=== PATIENT | male | born 1955 | race Caucasian/White ===

== ENCOUNTER 2016-10-13 12:22 | Inpatient (IN) | payer OTHER ==
[~2016-10-13] VITALS: Ht 182.9 cm; Wt 132.7 kg
[~2016-10-13 12:22] MED LIST: CORDARONE 200M200 MG PO; LANOXIN TAB0.125 MG PO; RANEXA1000 MG PO; TOPROL XL25 MG PO; ZANTAC150 MG PO
[2016-10-13 15:13] LABS: HEMOGLOBIN 12.9 gm/dl (14.0-17.5); RED BLOOD COUNT 4.39 M/UL (4.20-5.50); WHITE BLOOD COUNT 10.5 K/UL (4.5-11.0)
[2016-10-13 15:53] LABS: BUN/CREATININE RATIO 12 (0-10)
[2016-10-14] MEDS ORDERED: ASPIRIN81 MG PO (01:44)
[2016-10-14] MEDS ORDERED: XANAX0.25 MG PO (01:44)
[2016-10-14] MEDS ORDERED: CORDARONE 200M200 MG PO (01:44)
[2016-10-14] MEDS ORDERED: LIPITOR TAB 2020 MG PO (01:45)
[2016-10-14] MEDS ORDERED: COREG 3.125M3.125 MG PO (01:45)
[2016-10-14] MEDS ORDERED: CELEXA40 MG PO ×2 (01:45→01:46)
[2016-10-14] MEDS ORDERED: NEURONTIN 400400 MG PO (01:46)
[2016-10-14] MEDS ORDERED: IMDUR ER TAB 3030 MG PO (01:46)
[2016-10-14] MEDS ORDERED: PLAVIX 75 MG TA75 MG PO (01:46)
[2016-10-14] MEDS ORDERED: ROXICODONE30 MG PO (01:47)
[2016-10-14] MEDS ORDERED: ALDACTONE25 MG PO (01:48)
[2016-10-14] MEDS ORDERED: ZANTAC150 MG PO (01:48)
[2016-10-14] MEDS ORDERED: RANEXA1000 MG PO (01:48)
[2016-10-14 05:37] LABS: HEMOGLOBIN 13.5 gm/dl (14.0-17.5); RED BLOOD COUNT 4.58 M/UL (4.20-5.50); WHITE BLOOD COUNT 8.7 K/UL (4.5-11.0)
--- NOTE | 2016-10-15 03:42 | NUR ---
10/15/16 033 I CONTACTED SHIELA, [facility] PHARMAC[facility], REGARDING PT'S IV ANTIBIOTICS. UNFORTUNATELY, THE PATIENTS IV BEGAN LEAKING RETIREMENT THROUGH HIS [facility] VANCOMYOCIN DOSE. IV ACCESS WAS ATTEMPTED SEVERAL TIMES AND WAS NOT OBTAINED UNTIL 329. PER ELIEZER RECOMMENDATIONS, I RESUMED INFUSING THE NIGHT TIME DOSE OF VANCOMYOCIN AND WILL INFUSE THE LATE MIDNIGHT DOSE OF ZOSYN AND RETIME FUTURE DOSES. I HAVE ALSO LEFT THE VANCOMYOCIN TROUGH ORDER FOR THIS AM PREVIOUSLY ORDERED PER ELIEZER RECOMMENDATION AND WILL SPEAK TO [facility] ABOUT THIS WHEN THEY ARRIVE THIS AM.
[2016-10-15 05:55] LABS: HEMOGLOBIN 12.4 gm/dl (14.0-17.5); RED BLOOD COUNT 4.2 M/UL (4.20-5.50); WHITE BLOOD COUNT 9.5 K/UL (4.5-11.0)
--- NOTE | 2016-10-15 07:13 | NUR ---
10/15/16 0711 SPOKE WITH NICKIE BRITT REGARDING PTS VANCOMYOCIN. I RELAYED THAT THE 2200 DOSE WAS GIVEN LATE D/T THE PATIENTS LOSS OF IV ACCESS. LORENZA ADVISED NOT TO GIVE THE 0600 DOSE AT THIS TIME SINCE THE VANCOMYOCIN TROUGH IS STILL PENDING. SHE ADVISED THAT SHE WILL PROVIDE FURTHER ORDERS WHEN THE TROUGH IS BACK.
[2016-10-18 05:04] LABS: HEMOGLOBIN 11.2 gm/dl (14.0-17.5); RED BLOOD COUNT 3.79 M/UL (4.20-5.50)
[2016-10-19 05:22] LABS: HEMOGLOBIN 10.9 gm/dl (14.0-17.5); RED BLOOD COUNT 3.69 M/UL (4.20-5.50); WHITE BLOOD COUNT 8.1 K/UL (4.5-11.0)
[2016-10-20 05:41] LABS: HEMOGLOBIN 11.9 gm/dl (14.0-17.5); WHITE BLOOD COUNT 8.2 K/UL (4.5-11.0)
[2016-10-20 05:57] LABS: BUN/CREATININE RATIO 18 (0-10)
[2016-10-23 05:25] LABS: HEMOGLOBIN 10.9 gm/dl (14.0-17.5); RED BLOOD COUNT 3.75 M/UL (4.20-5.50)
[2016-10-23 05:33] LABS: WHITE BLOOD COUNT 5.8 K/UL (4.5-11.0)
[2016-10-24 13:10] LABS: WHITE BLOOD COUNT 8.5 K/UL (4.5-11.0)
[2016-10-26 02:45] LABS: HEMOGLOBIN 11.1 gm/dl (14.0-17.5); RED BLOOD COUNT 3.78 M/UL (4.20-5.50)
[2016-10-26 02:48] LABS: WHITE BLOOD COUNT 9.4 K/UL (4.5-11.0)
[2016-10-26 03:04] LABS: BUN/CREATININE RATIO 24 (0-10)
[2016-10-27 05:13] LABS: HEMOGLOBIN 12.1 gm/dl (14.0-17.5); RED BLOOD COUNT 4.05 M/UL (4.20-5.50); WHITE BLOOD COUNT 10.7 K/UL (4.5-11.0)
[2016-10-27 05:31] LABS: BUN/CREATININE RATIO 28 (0-10)
[2016-10-28] MEDS ORDERED: SPIRIVA HANDIH18 MCG INH (01:49)
[2016-10-28] MEDS ORDERED: BUMETANIDE1 MG PO (10:48)
[2016-10-28] MEDS ORDERED: ZYVOX600 MG PO (10:50)
[2016-10-28] MEDS ORDERED: PREDNISONE20 MG PO (10:51)
[2016-10-28] MEDS ORDERED: LORTAB 5-325 M1 EACH PO (10:52)
[2016-10-28] MEDS ORDERED: NITROSTAT 0.4100 TAB SL (10:55)
[2016-10-28] MEDS ORDERED: PROTONIX 40 MG40 M1 PO (10:57)
[2016-11-30] MEDS ORDERED: OXYCODONE HCL30 MG PO (02:22)
[2016-11-30] MEDS ORDERED: PLAVIX 75 MG TA75 MG PO (02:24)
[2016-11-30] MEDS ORDERED: DIGOX125 MCG PO (02:25)
[2016-11-30] MEDS ORDERED: CELEXA40 MG PO (02:27)
[2016-11-30] MEDS ORDERED: TOPAMAX25 MG PO (02:27)
[2016-11-30] MEDS ORDERED: ZANTAC150 MG PO (02:28)
[2016-11-30] MEDS ORDERED: IMDUR ER TAB 3030 MG PO (02:31)
[2016-11-30] MEDS ORDERED: PRINIVIL5 MG PO (02:32)
[2016-12-14] MEDS ORDERED: PROAIR HFA8.5 GM INH (02:34)
[2016-12-14] MEDS ORDERED: BUMEX 1MG TABLET1 MG PO (11:42)
[2016-12-14] MEDS ORDERED: TOPROL XL 25 MG25 MG PO (11:44)
[2016-12-14] MEDS ORDERED: MIDODRINE HCL5 MG PO (11:44)
[2016-12-14] MEDS ORDERED: MIRALAX17 GM PO (11:45)
[2016-12-14] MEDS ORDERED: POTASSIUM CHLO20 ME1 PO (11:46)
[2016-12-14] MEDS ORDERED: PREDNISONE 5 MG5 MG PO (11:49)
== END 2016-10-28 12:08 | disposition home or self-care (01) | DRG 545 ==
LOC: ER1 12:22 → ZEROF 22:22 → M/S 22:22
PROVIDERS: Emergency Medicine; Family Medicine; Hospitalist; Internal Medicine; Surgery; ADMIT Internal Medicine
PROC: 02HV33Z Insertion of Infusion Device into Superior Vena Cava, Percutaneous Approach (ICD-10-PCS; 2016-10-15)
PROC: B548ZZA Ultrasonography of Superior Vena Cava, Guidance (ICD-10-PCS; 2016-10-15)
PROC: 0JBN0ZX Excision of Right Lower Leg Subcutaneous Tissue and Fascia, Open Approach, Diagnostic (ICD-10-PCS; principal; 2016-10-15 15:00)
PROC: 0HBCXZX Excision of Left Upper Arm Skin, External Approach, Diagnostic (ICD-10-PCS; 2016-10-18)
DX: I77.6 Arteritis, unspecified (principal); I50.23 Acute on chronic systolic (congestive) heart failure; I13.0 Hypertensive heart and chronic kidney disease with heart failure and stage 1 through stage 4 chronic kidney disease, or unspecified chronic kidney disease; L03.116 Cellulitis of left lower limb; L03.115 Cellulitis of right lower limb; Z68.41 Body mass index [BMI] 40.0-44.9, adult; I96 Gangrene, not elsewhere classified; L97.929 Non-pressure chronic ulcer of unspecified part of left lower leg with unspecified severity; L97.919 Non-pressure chronic ulcer of unspecified part of right lower leg with unspecified severity; N17.9 Acute kidney failure, unspecified; F11.20 Opioid dependence, uncomplicated; E11.22 Type 2 diabetes mellitus with diabetic chronic kidney disease; E11.65 Type 2 diabetes mellitus with hyperglycemia; N18.3 Chronic kidney disease, stage 3 (moderate); B95.62 Methicillin resistant Staphylococcus aureus infection as the cause of diseases classified elsewhere; I25.5 Ischemic cardiomyopathy; D64.9 Anemia, unspecified; E66.01 Morbid (severe) obesity due to excess calories; J44.9 Chronic obstructive pulmonary disease, unspecified; I25.119 Atherosclerotic heart disease of native coronary artery with unspecified angina pectoris; I48.0 Paroxysmal atrial fibrillation; L98.499 Non-pressure chronic ulcer of skin of other sites with unspecified severity; R07.89 Other chest pain; E78.5 Hyperlipidemia, unspecified; D69.6 Thrombocytopenia, unspecified; R09.02 Hypoxemia; K21.9 Gastro-esophageal reflux disease without esophagitis; G89.4 Chronic pain syndrome; M19.90 Unspecified osteoarthritis, unspecified site; F41.9 Anxiety disorder, unspecified; I25.2 Old myocardial infarction; Z95.810 Presence of automatic (implantable) cardiac defibrillator; Z98.61 Coronary angioplasty status; F17.210 Nicotine dependence, cigarettes, uncomplicated; Z72.3 Lack of physical exercise; Z79.02 Long term (current) use of antithrombotics/antiplatelets; Z79.82 Long term (current) use of aspirin; Z79.899 Other long term (current) drug therapy; Z88.8 Allergy status to other drugs, medicaments and biological substances; Z90.49 Acquired absence of other specified parts of digestive tract; Z98.890 Other specified postprocedural states; Z83.3 Family history of diabetes mellitus; Z82.49 Family history of ischemic heart disease and other diseases of the circulatory system; Z80.1 Family history of malignant neoplasm of trachea, bronchus and lung
CPT/HCPCS: ECHO; 36415; 71010; 80048; 80053; 80074; 80202; 80307; 81001; 82550; 82553; 82570; 82595; 82784; 82962; 83036; 83605; 83690; 83735; 83880; 83970; 84100; 84156; 84165; 84484; 85025; 85027; 85610; 85611; 85730; 85732; 86039; 86140; 86160; 86225; 86235; 86431; 87040; 87070; 87077; 87186; 87205; 87390; 93005; 93306; 93925; 94640; 94664; 94760; 96365; 96366; 96367; 96375; 96376; 99284; J1644; J1940; J2020; J2270; J2405; J2543; J3370; J7050; J7070; J7120